=== PATIENT | female | born 1975 | race Caucasian/White ===

== ENCOUNTER → 2019-05-28 | Outpatient (REF) | LOC: M LAB LCGH 13:38 | PROVIDERS: ATTEND Obstetrics & Gynecology | DX: N93.9 Abnormal uterine and vaginal bleeding, unspecified (principal) ==

== ENCOUNTER → 2019-06-25 | Outpatient (REF) | payer BC | LOC: M LAB LCGH 13:35 | PROVIDERS: ATTEND Obstetrics & Gynecology | DX: N92.1 Excessive and frequent menstruation with irregular cycle (principal); N71.9 Inflammatory disease of uterus, unspecified ==

== ENCOUNTER → 2020-01-25 | Outpatient (CLI) | payer BC | LOC: M LABSMTC 10:58 | PROVIDERS: ATTEND Orthopaedic Surgery | DX: Z01.818 Encounter for other preprocedural examination (principal); Z11.59 Encounter for screening for other viral diseases; Z20.828 Contact with and (suspected) exposure to other viral communicable diseases ==

== ENCOUNTER 2020-09-20 06:15 | Day surgery (SDC) | payer BC ==
[~2020-09-20] VITALS: Ht 162.6 cm; Wt 90.2 kg
[~2020-09-20 06:15] MED LIST: CITA20TA6; HYDR-3713 PO; HYDR50TA70 PO; ONDA-83 PO
[2020-09-20] MEDS ORDERED: LR 1,000 ML IV ONE (06:25)
[2020-09-20] MEDS ORDERED: LIDOCAINE 4% INJ 5ML AMP INH ONE (06:30)
[2020-09-20] MEDS ORDERED: ALBUTEROL SULFATE 2.5 MG/0.5 ML INH NEB SOLN INH ONE (06:30)
[2020-09-20] MEDS ORDERED: CETACAINE SPRAY 5GM As Ordered ONE (07:17)
[2020-09-20] MEDS ORDERED: EPINEPHrine 1MG/10ML SYRINGE 1.5IN As Ordered ONE (07:17)
[2020-09-20] MEDS ORDERED: THROMBIN SOLN 5,000 UNITS VIAL As Ordered ONE (07:17)
[2020-09-20] MEDS ORDERED: MIDAZOLAM INJ 2MG/2ML VIAL (J2250 PER 1MG) As Ordered ONE (07:21)
[2020-09-20] MEDS ORDERED: fentaNYL 100 MCG/2 ML INJECTION (J3010) As Ordered ONE (07:21)
[2020-09-20] MEDS ORDERED: LIDOCAINE 2% 100MG/5ML SDV (FOR ANES.) As Ordered ONE (07:21)
[2020-09-20] MEDS ORDERED: ROCURONIUM BROMIDE 50 MG/5 ML VIAL As Ordered ONE (07:21)
[2020-09-20] MEDS ORDERED: dexameTHASONE 4 MG/ML 1ML VIAL (J1100 PER 1MG) As Ordered ONE (07:21)
[2020-09-20] MEDS ORDERED: propofoL 200 MG/20 ML VIAL As Ordered ONE ×2 (07:21→08:13)
[2020-09-20] MEDS ORDERED: SCOPOLAMINE 1MG TRANSDERMAL PATCH TOP ONE (07:30)
[2020-09-20] MEDS ORDERED: SUCCINYLCHOLINE 100 MG/5 ML SYRINGE (J0330) As Ordered ONE (08:06)
[2020-09-20] MEDS ORDERED: ePHEDrine SULFATE 25 MG/5 ML(5MG/ML) SYRINGE As Ordered ONE (08:06)
[2020-09-20] MEDS ORDERED: SUGAMMADEX SODIUM 500 MG/5 ML VIAL (BRIDION) As Ordered ONE (08:11)
[2020-09-20] MEDS ORDERED: LACRILUBE (AKWA TEARS) OPHTH OINT 3.5 GM As Ordered ONE (08:18)
--- NOTE | 2020-09-20 09:11 | REP ---
INDICATION: POST OP IN PACU/BRONCHO COMPARISON: None. TECHNIQUE: Portable AP view of the chest FINDINGS: Examination is limited by portable technique and poor inspiratory effort. No evidence for consolidation, effusion, or pneumothorax. IMPRESSION: No consolidation, effusion, or pneumothorax. <Electronically signed by Joe Acevedo > 09/20/20 0907
[2020-09-20] MEDS ORDERED: fentaNYL 100 MCG/2 ML INJECTION (J3010) IV PRN (09:25)
[2020-09-20] MEDS ORDERED: ONDANSETRON 4MG/2ML VIAL IV PRN (09:25)
[2020-09-20] MEDS ORDERED: METOCLOPRAMIDE INJ 10MG/2ML VIAL (J2765 PER 1) IV PRN (09:25)
[2020-09-20] MEDS ORDERED: PERCOCET 5MG/325MG TAB PO PRN (09:25)
[2020-09-20] MEDS ORDERED: LR 1,000 ML IV SCH (09:25)
[2020-09-20 09:30] VITALS: BP 118/58
[2020-09-20 10:08] LABS: SOURCE RIGHT UPPER LOBE
[2020-09-20 10:09] LABS: APPEARANCE CLOTTED (CLEAR); COLOR PINK (COLORLESS)
--- NOTE | 2020-09-20 10:59 | ROOR ---
Patient Name: Sheryl Guzman Procedure Date: 09/20/2020 7:10 AM Date of : 1975 Admit Type: Outpatient Age: 45 Room: [facility] Note Status: Finalized Attending MD: Amparo Sandoval MD Procedure: Bronchoscopy Indications: Bilateral hilar lymphadenopathy, Abnormal CT scan of chest Providers: Amparo Sandoval MD (Doctor) Referring MD: No referring MD listed Requesting Physician: Medicines: General Anesthesia, Lidocaine 4% via nebulizer with Albuterol 2.5 mg, Cetacaine topical Complications: No immediate complications. Estimated blood loss: Minimal Procedure: Pre-Anesthesia Assessment: - Prior to the procedure, a History and Physical was performed, and patient medications and allergies were reviewed. The patient's tolerance of previous anesthesia was also reviewed. The risks and benefits of the procedure and the sedation options and risks were discussed with the patient. All questions were answered, and informed consent was obtained. Prior Anticoagulants: The patient has taken no previous anticoagulant or antiplatelet agents. ASA Grade Assessment: II - A patient with mild systemic disease. After reviewing the risks and benefits, the patient was deemed in satisfactory condition to undergo the procedure. - Patient identification and proposed procedure were verified prior to the procedure by the physician, the nurse, the anesthesiologist, the gas regulator repairer and the medical service technician. The procedure was verified in the procedure room. The Bronchoscope was introduced through the mouth, via the endotracheal tube (the patient was intubated for the procedure) and advanced to the tracheobronchial tree of both lungs. The procedure was accomplished without difficulty. The patient tolerated the procedure well. Findings: The endotracheal tube is in good position. The visualized portion of the trachea is of normal caliber. The marisa is sharp. The tracheobronchial tree was examined to at least the first subsegmental level. Bronchial mucosa and anatomy are normal; there are no endobronchial lesions. There was some scattered mucosal webbing and pitting throughout. There were scant white secretions, some coated in right bronchus intermedius. An endobronchial ultrasound endoscope was utilized in order to assist with fine needle aspiration in the subcarinal area and in the right hilum. Transbronchial needle aspirations of a lymph nodes were performed in the subcarinal area and in the right hilum using an Olympus EBUS-TBNA 21 gauge needle and sent for routine cytology. The procedure was guided by ultrasound. The sampling device penetrated the full thickness of the bronchial wall in order to reach the sampling site. Impression: - Bilateral hilar lymphadenopathy - The airway examination was normal. - Endobronchial ultrasound was performed. - A transbronchial needle aspiration was performed. Recommendation: - Await test results. Procedure Code(s): --- Professional --- 44753, Bronchoscopy, rigid or flexible, including fluoroscopic guidance, when performed; with transbronchial needle aspiration biopsy(s), trachea, main stem and/or lobar bronchus(i) 01277, Bronchoscopy, rigid or flexible, including fluoroscopic guidance, when performed; with transendoscopic endobronchial ultrasound (EBUS) during bronchoscopic diagnostic or therapeutic intervention(s) for peripheral lesion(s) (List separately in addition to code for primary procedure[s]) CPT copyright 2019 [employer]. All rights reserved. The codes documented in this report are preliminary and upon senior functional analyst review may be revised to meet current compliance requirements. Attending Participation: I personally performed the entire procedure. Amparo Sandoval MD 09/20/2020 10:59:02 AM Number of Addenda: 0 Note Initiated On: 09/20/2020 7:10 AM
[2020-09-21 09:43] LABS: MONOCYTES/MACROPHAGES, BAL 90 %
== END 2020-09-20 09:47 | disposition home or self-care (01) ==
LOC: M SDC 06:15
PROVIDERS: ATTEND Internal Medicine Pulmonary Disease
DX: R91.8 Other nonspecific abnormal finding of lung field (principal); R59.0 Localized enlarged lymph nodes; G43.909 Migraine, unspecified, not intractable, without status migrainosus; F41.9 Anxiety disorder, unspecified; Z86.16 Personal history of COVID-19; I34.0 Nonrheumatic mitral (valve) insufficiency; I36.1 Nonrheumatic tricuspid (valve) insufficiency; Z79.899 Other long term (current) drug therapy
CPT/HCPCS: 31629; 31654; 71045; 87070; 87102; 87116; 87205; 87206; 88173; 88305; 88312; 89050; 89051; J0330; J1100; J2250; J3010